=== PATIENT | male | born 1995 | race Caucasian/White ===

== ENCOUNTER 2019-03-29 23:03 | Emergency (ER) | payer SELFPAY ==
[~2019-03-29] VITALS: Ht 167.6 cm; Wt 57.7 kg
[2019-03-29 23:09] VITALS: BP 137/78; PULSE 65; RESP 16; Ht 167.6 cm; Wt 57.7 kg
[2019-03-30] MEDS ORDERED: KETOROLAC 30 MG INJ IM STA (00:36)
[2019-03-30] MEDS ORDERED: TRAM50TA2 PO (00:56)
[2019-03-30] MEDS ORDERED: IBUP-1542 PO (00:56)
--- NOTE | 2019-03-30 01:02 | ERD ---
ER Documentation Chief Complaint Chief Complaint LLQ pain denies n/v/d HPI 23-year-old male with no reported past medical surgical history who presents with complaint of left lower quadrant abdominal pain since today. She describes a sharp pain localized left lower quadrant that began abruptly this morning. Had similar symptoms a week ago which resolved spontaneously. He denies associated fevers, chills, nausea, vomiting, diarrhea, testicular pain or swelling, urinary symptoms as burning or itching or frequency. Moving his bowels without issue last BM reported at around 12 PM. Patient is sexually active with one partner which is his . He denies any history of STDs. He denies any active drug or alcohol abuse. He has not taken any medications for pain. ROS All systems reviewed and are negative except as per history of present illness. Medications Home Meds Active Scripts Tramadol HCl (Tramadol HCl) 50 Mg Tablet, 50 MG PO Q4 PRN for PAIN, #20 TAB Prov:JEUDINEAASHISHHO PA-C 03/30/19 Ibuprofen* (Motrin*) 600 Mg Tab, 600 MG PO Q6, #30 TAB Prov:ESTHER GARCIA PA-C 03/30/19 Allergies Allergies: Coded Allergies: No Known Allergy (Unverified , 03/29/19) PMhx/Soc Medical and Surgical Hx: pt denies Medical Hx, pt denies Surgical Hx History of Surgery: No Anesthesia Reaction: No Hx Neurological Disorder: No Hx Respiratory Disorders: No Hx Cardiac Disorders: No Hx Psychiatric Problems: No Hx Miscellaneous Medical Probl: No Hx Alcohol Use: No Hx Substance Use: No Hx Tobacco Use: No Smoking Status: Never smoker FmHx Family History: No diabetes, No coronary disease, No other Physical Exam Vitals Vital Signs Date Temp Pulse Resp B/P (MAP) Pulse Ox O2 O2 Flow FiO2 Time Delivery Rate 03/29/19 97.8 65 16 137/78 98 23:09 (97) Physical Exam I have reviewed the triage vital signs. Const: Well nourished, well developed, appears stated age Eyes: PERRL, no conjunctival injection HENT: NCAT, Neck supple without meningismus CV: RRR, Warm, well-perfused extremities RESP: CTAB, Unlabored respiratory effort GI: soft,non-distended, no masses, tenderness to deep palpation to left lower quadrant, no rebound or guarding, normal testicular examination with no swelling or erythema, cremasteric reflex intact, no pain on palpation of bilateral testes MSK: No gross deformities appreciated Skin: Warm, dry. No rashes Neuro: grossly non focal Psych: Appropriate mood and affect. Results 24 hrs Laboratory Tests Test 03/30/19 00:40 Urine Color YELLOW Urine Clarity CLEAR Urine pH 5.0 Urine Specific [place] 1.031 Urine Ketones NEGATIVE mg/dL Urine Nitrite NEGATIVE mg/dL Urine Bilirubin NEGATIVE mg/dL Urine Urobilinogen 1+ mg/dL Urine Leukocyte Esterase NEGATIVE Hilton/ul Urine Hemoglobin NEGATIVE mg/dL Urine Glucose NEGATIVE mg/dL Urine Total Protein NEGATIVE mg/dl Current Medications Medications Dose Sig/Delgado Start Time Status Last (Trade) Ordered Route PRN Stop Time Admin Dose Reason Admin Ketorolac 30 mg ONCE STAT 03/30/19 DC 03/30/19 Tromethamine IM 00:36 00:40 (Toradol) 03/30/19 00:37 Procedures/MDM This patient presents with abdominal pain of unclear etiology. Differentials for left lower quadrant abdominal pain in a young healthy male includes diverticulitis, UTI, pyelonephritis, renal stone. their evaluation has not identified a emergent etiology for the abdominal pain. Specifically, given the time I have a very low suspicion for diverticulitis, appendicitis, ischemic bowel, bowel perforation, or any other life threatening disease. ED course: Case discussed with Dr. lindsay who agrees with plan and work-up as below Abdominal ultrasound without acute findings UA unremarkable I have discussed with the patient the level of uncertainty with undifferentiated abdominal pain and clearly explained the need to follow-up as noted on the discharge instructions, or return to the Emergency Department immediately if the pain worsens, develops fever, persistent and uncontrollable vomiting, or for any new symptoms or concerns. I discussed with the patient that this presentation today for abdominal pain could represent a significant risk for an acute abdominal process. Although the tests in the ED were essentially normal, there is still a possibility of a process such as appendicitis, diverticulitis, cholecystitis, ulcer, early bowel obstruction, mesenteric ischemia, kidney stone, or even kidney infection which could subsequently cause disability or . Patient given specific strict return precautions and agrees with plan. DISPOSITION PLAN: We discussed follow up with the patient's primary care doctor within 24 to 48 hours. Patient counseled regarding my diagnostic impression and care plan. Prior to discharge all questions answered. Pt agrees with treatment plan and understands strict return precautions. Precautionary instructions provided inc luding instructions to return to the ER if not improving or for any worsening or changing symptoms or concerns. Disclaimer: Inadvertent spelling and grammatical errors are likely due to EHR/dictation software use and do not reflect on the overall quality of patient care. Also, please note that the electronic time recorded on this note does not necessarily reflect the actual time of the patient encounter. Departure Diagnosis: Primary Impression: Abdominal pain Condition: Stable Patient Instructions: Abdominal Pain Additional Instructions: Call your primary care doctor TOMORROW for an appointment during the next 2-3 days.See the doctor sooner or return here if your condition worsens before your appointment time. ESTHER GARCIA PA-C Mar 30, 2019 01:02
== END 2019-03-30 01:51 | disposition home or self-care (01) ==
LOC: FTE 23:03
DX: R10.32 Left lower quadrant pain (principal)
CPT/HCPCS: 76700; 81003; 96372; 99285; J1885